=== PATIENT | male | born 1950 | race Caucasian/White ===

== ENCOUNTER 2018-01-05 10:03 | Day surgery (SDC) | payer MEDICARE, MEDICAID ==
[~2018-01-05] VITALS: Ht 182.9 cm; Wt 87.6 kg
[~2018-01-05 10:03] MED LIST: LITHIUM 30300 MG/CAP PO
[2018-01-05 12:06] VITALS: BP 136/74; PULSE 75; TEMP 98.3
[2018-01-05 15:04] VITALS: BP 116/66; PULSE 51; TEMP 98.7
[2018-01-05 15:15] VITALS: BP 118/55; PULSE 47
[2018-01-05 15:30] VITALS: BP 111/64; PULSE 44
[2018-01-05 15:45] VITALS: BP 109/67; PULSE 62
== END 2018-01-05 16:42 | disposition home or self-care (01) ==
LOC: SDCO 10:03
DX: K40.90 Unilateral inguinal hernia, without obstruction or gangrene, not specified as recurrent (principal); Z96.653 Presence of artificial knee joint, bilateral; Z87.891 Personal history of nicotine dependence
CPT/HCPCS: A4314; C1781; J0690; J1100; J1885; J2405; J2704; J2710; J3010; J7030; J7120